=== PATIENT | female | born 1935 | race Two or more races ===

== ENCOUNTER 2018-12-20 12:55 | Inpatient (IN) | payer MEDICARE, OTHER ==
[~2018-12-20] VITALS: Ht 157.5 cm; Wt 60.0 kg
[2018-12-20] MEDS ORDERED: SODIUM CHLORIDE 0.9% 500 ML IVB ONE (12:58)
[2018-12-20] MEDS ORDERED: MORPHINE SULFATE 4 MG/ML SYR/VIAL IV ONE (13:00)
[2018-12-20] MEDS ORDERED: ONDANSETRON HCL 4 MG/2 ML VIAL IV ONE (13:00)
[2018-12-20 13:19] LABS: Basophils # (auto) 0 uL; Basophils % (auto) 0.8 % (0.0-2.0); Eosinophils # (auto) 0.1 uL; Hematocrit 34.9 % (36.0-46.0); Hemoglobin 11.2 g/dL (12.2-16.2); Lymphocytes # (auto) 1.6 uL; Lymphocytes % (auto) 29.8 % (10.0-50.0); Mean Corpuscular Hemoglobin 25.4 pg (28.0-32.0); Mean Corpuscular Hgb Conc. 32.1 g/dL (32.0-36.0); Mean Corpuscular Volume 79.1 fL (80.0-100.0); Monocytes # (auto) 0.5 uL; Neutrophils # (auto) 3.1 uL; Neutrophils % (auto) 58.4 % (37.0-80.0); Platelet Count (auto) 255 10^3/uL (140-450); Red Blood Cells 4.41 10^6/uL (4.0-5.20); Red Cell Distribution Width 15.6 % (11.8-14.3); White Blood Cell 5.3 10^3/uL (4.4-10.8)
[2018-12-20 13:36] LABS: Albumin 3.3 g/dL (3.4-5.0); Calcium 8.6 mg/dL (8.5-10.1); Magnesium 2.7 mg/dL (1.6-2.6); Potassium 3.6 mmol/L (3.5-5.1)
[2018-12-20 13:39] LABS: BUN/Creatinine Ratio 18.3; Bilirubin, Total 0.4 mg/dL (0.2-1.0); Total Protein 7.3 g/dL (6.4-8.2)
[2018-12-20 15:46] LABS: Urine Bacteria FEW /hpf (None Seen); Urine Blood Negative /uL (Negative); Urine Specific Gravity 1.008 (1.001-1.035); Urine WBC <1 /hpf (0 - 5)
[2018-12-20] MEDS ORDERED: TEMAZEPAM 15 MG CAP PO PRN (21:30)
[2018-12-20] MEDS ORDERED: ONDANSETRON HCL 4 MG/2 ML VIAL IV PRN (21:30)
[2018-12-20] MEDS ORDERED: ACETAMINOPHEN 500 MG TAB PO PRN (21:30)
[2018-12-20] MEDS: amLODIPine BESYLATE 5 MG TAB PO SCH (22:06)
--- NOTE | 2018-12-20 22:40 | NUR ---
Telemetry admit from ER [facility] admitted to Telemetry unit after SBAR received from ER nurse Graciela. Patient oriented to Xi Monteiro, primary RN, unit, room, bed, and unit policies regarding patient care and visiting hours. Patient now on continuous telemetry monitoring, tele box # [id number]. Patient weighed by bedscale and encouraged to call if they need something. All questions and concerns addressed, patient verbalized understanding. Family is bedside. Bed is in lowest position with bed alarm on and call light is within reach. No s/s of distress or sob with even and unlabored breathing. Iv 20g to L wrist is asymptomatic, patent, clean and dry.
[2018-12-20 23:53] VITALS: BP 143/82
[2018-12-21] MEDS ORDERED: AMLO5TAB13 PO (00:14)
[2018-12-21 04:47] VITALS: BP 102/58
[2018-12-21 05:54] LABS: Basophils # (auto) 0 uL; Basophils % (auto) 0.9 % (0.0-2.0); Eosinophils # (auto) 0.1 uL; Eosinophils % (auto) 2.2 % (0.0-7.0); Hematocrit 31.1 % (36.0-46.0); Hemoglobin 10.3 g/dL (12.2-16.2); Lymphocytes # (auto) 1.2 uL; Lymphocytes % (auto) 26.4 % (10.0-50.0); Mean Corpuscular Hemoglobin 26.1 pg (28.0-32.0); Mean Corpuscular Volume 79.1 fL (80.0-100.0); Monocytes # (auto) 0.6 uL; Monocytes % (auto) 13.2 % (0.0-12.0); Neutrophils # (auto) 2.6 uL; Neutrophils % (auto) 57.3 % (37.0-80.0); Platelet Count (auto) 224 10^3/uL (140-450); Red Blood Cells 3.93 10^6/uL (4.0-5.20); Red Cell Distribution Width 15.3 % (11.8-14.3); White Blood Cell 4.5 10^3/uL (4.4-10.8)
[2018-12-21 06:18] LABS: Potassium 4.1 mmol/L (3.5-5.1)
[2018-12-21 06:23] LABS: BUN/Creatinine Ratio 17.1; Calcium 8.3 mg/dL (8.5-10.1)
--- NOTE | 2018-12-21 07:30 | NUR ---
Opening Shift Note RECEIVED REPORT FROM NOC RN. Assumed care of patient, awake and alert. No S/S of distress/SOB or pain. BED IN LOWEST, LOCKED POSITION WITH SIDERAILS UP x2. Instructed on POC and to call for assist PRN, will continue to monitor for changes Q1hr and PRN.
[2018-12-21 08:10] VITALS: BP 120/36
[2018-12-21 09:00] VITALS: BP 120/36
[2018-12-21] MEDS: DOCUSATE SOD 100 MG CAP PO SCH (10:13)
[2018-12-21] MEDS: amLODIPine BESYLATE 5 MG TAB PO SCH ×2 (10:13→21:51)
[2018-12-21 13:00] VITALS: BP 146/46
--- NOTE | 2018-12-21 13:29 | NUR ---
DR. CHAN AT BEDSIDE.
[2018-12-21] MEDS ORDERED: FAMOTIDINE (10MG/ML) 2ML VL IV ONE (13:30)
[2018-12-21 17:35] VITALS: BP 144/65
--- NOTE | 2018-12-21 19:49 | NUR ---
open note assumed care of pt. upon entering room, pt awake, alert and oriented x4. pt family at bedside. pt had no complaints at this time. out of bed. pt on room air no distress noted. pt and family updated on plan of care. no questions at this time. pt call light in reach, bed locked, low and 2xrails up. will round on pt q1hr and prn.
[2018-12-21 22:00] VITALS: BP 140/56
[2018-12-22 08:04] VITALS: BP 116/45
[2018-12-22 09:00] VITALS: BP 116/45
[2018-12-22] MEDS: amLODIPine BESYLATE 5 MG TAB PO SCH (09:54)
[2018-12-22] MEDS: DOCUSATE SOD 100 MG CAP PO SCH (09:55)
[2018-12-22] MEDS ORDERED: FAMOTIDINE (10MG/ML) 2ML VL IV SCH (10:00)
--- NOTE | 2018-12-22 11:05 | NUR ---
DR. Sobia CHAN AT BEDSIDE.
[2018-12-22] MEDS ORDERED: LEVOFLOXACIN 500 MG TAB PO ONE (11:15)
[2018-12-22 12:49] VITALS: BP 150/60
[2018-12-22 13:00] VITALS: BP 150/60
--- NOTE | 2018-12-22 15:15 | NUR ---
Discharge instructions given as ordered. Encourage to follow up with PMD as instructed. All questions and concerns addressed. Patient verbalized understanding. Medication reconciliation form completed and copy given to patient. IV removed with catheter intact, pressure dressing applied. Telemetry unit returned to [facility]. Patient taken to vehicle via wheelchair with all personal belongings, accompanied by staff and family member. No distress noted at time of departure.
[2018-12-23] MEDS ORDERED: LEVOFLOXACIN 500 MG TAB PO SCH (10:00)
== END 2018-12-22 15:15 | disposition home or self-care (01) | DRG 392 ==
LOC: EDBD 12:55 → ER 13:01 → TELE 13:02 → TELE-WESTW 22:40
PROVIDERS: ADMIT Nurse Practitioner Family; ATTEND Nurse Practitioner Family
DX: K29.70 Gastritis, unspecified, without bleeding (principal); N39.0 Urinary tract infection, site not specified; I10 Essential (primary) hypertension; K42.9 Umbilical hernia without obstruction or gangrene; K59.00 Constipation, unspecified; R00.1 Bradycardia, unspecified; I70.0 Atherosclerosis of aorta; K80.20 Calculus of gallbladder without cholecystitis without obstruction; M81.0 Age-related osteoporosis without current pathological fracture; Z90.710 Acquired absence of both cervix and uterus; Z88.0 Allergy status to penicillin; Z80.9 Family history of malignant neoplasm, unspecified
CPT/HCPCS: 36415; 73700; 74176; 76705; 80048; 80053; 81001; 83690; 83735; 85025; 94761; 96361; 96374; 96375; G0378; J2405; J3490